=== PATIENT | male | born 1950 | race African-American/Black ===

== ENCOUNTER 2024-09-29 16:20 | Emergency (ER) | payer SELFPAY ==
[~2024-09-29] VITALS: Ht 180.3 cm; Wt 77.0 kg
[2024-09-29 16:32] VITALS: TEMP 36.9; O2SAT 98
[2024-09-29 17:34] VITALS: BP 134/68; PULSE 88; RESP 16
[2024-09-29] MEDS: KETOROLAC 30MG/ML VIAL IM ONE (17:34)
[2024-09-29] MEDS ORDERED: IBUP-2028 MT (17:39)
== END 2024-09-29 19:13 | disposition home or self-care (01) ==
LOC: ER 16:20
DX: M54.9 Dorsalgia, unspecified (principal); E11.9 Type 2 diabetes mellitus without complications; E78.00 Pure hypercholesterolemia, unspecified; I10 Essential (primary) hypertension; Y92.410 Unspecified street and highway as the place of occurrence of the external cause; Z85.46 Personal history of malignant neoplasm of prostate; V89.2XXA Person injured in unspecified motor-vehicle accident, traffic, initial encounter; Y93.89 Activity, other specified; Y92.89 Other specified places as the place of occurrence of the external cause; Y99.8 Other external cause status
CPT/HCPCS: 99283; 71101; 96372; J1885